=== PATIENT | male | born 1955 | race Caucasian/White ===

== ENCOUNTER 2016-05-01 14:26 | Emergency (ER) | payer BC ==
--- NOTE | 2016-05-01 15:58 | EDM.PDOC ---
ED HPI NEURO - General Chief Complaint: Neuro Symptoms/Deficits Stated Complaint: NUMBNESS IN FACE AND HANDS Time Seen by Provider: 05/01/16 14:37 Source of Information: Reports: Patient, Family (), RN notes reviewed History Limitations: Reports: No limitations - History of Present Illness INITIAL COMMENTS - FREE TEXT/NARRATIVE: The patient states that he developed a tingling sensation to his left foot evening/Tuesday morning, 04/29/2016, 04/30/2016. He developed a tingling sensation to the ulnar aspect of his left hand about the same time. Tuesday and today he developed a tingling sensation to his left face. The tingling to his hand and face have been coming and going, while the tingling to his left foot persists. No prior similar symptoms. - Related Data Allergies/ADRs: Allergies Allergy/AdvReac Type Severity Reaction Status Date / Time No Known Allergies Allergy Verified 05/01/16 14:37 Home Meds: Home Meds Aspirin 81 mg PO DAILY 05/01/16 [History] Finasteride 5 mg PO DAILY 05/01/16 [History] Lisinopril [Zestril] 40 mg PO DAILY 05/01/16 [History] Omeprazole 20 mg PO DAILY 05/01/16 [History] Ubidecarenone [Co Q-10] 200 mg PO DAILY 05/01/16 [History] amLODIPine [Norvasc] 5 mg PO DAILY 05/01/16 [History] atorvaSTATin [Lipitor] 20 mg PO DAILY 05/01/16 [History] Past Medical History Cardiovascular History: Reports: High cholesterol, Hypertension Gastrointestinal History: Reports: GERD Genitourinary History: Reports: BPH - Past Surgical History GI Surgical History: Reports: Hernia repair/other Musculoskeletal Surgical History: Reports: Arthroscopic procedure (left knee) Social & Family History - Family History Cardiac: Reports: Hypertension, [place] - Tobacco Use Smoking Status *Q: Never Smoker Second Hand Smoke Exposure: No - Caffeine Use Caffeine Use: Reports: Coffee - Alcohol Use Alcohol Use History: Yes Alcohol Use Frequency: Rarely - Recreational Drug Use Recreational Drug Use: No - Living Situation & Occupation Living situation: Reports: , with spouse 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 [employer]) ED ROS GENERAL - Review of Systems Review Of Systems: See Below Constitutional: Reports: no symptoms HEENT: Reports: No symptoms Respiratory: Reports: No Symptoms Cardiovascular: Reports: No symptoms Endocrine: Reports: no symptoms GI/Abdominal: Reports: No symptoms : Reports: no symptoms Musculoskeletal: Reports: no symptoms Skin: Reports: no symptoms Neurological: Reports: No Symptoms Psychiatric: Reports: No symptoms Hematologic/Lymphatic: Reports: no symptoms Immunologic: Reports: no symptoms ED EXAM, NEURO - Physical Exam Exam: See Below Exam Limited By: No limitations General Appearance: alert, WD/WN, no apparent distress Eye Exam: bilateral eye: EOMI, normal inspection Ears: normal external exam, hearing grossly normal Nose: normal inspection, no blood Throat/Mouth: Normal inspection, Normal lips, Normal voice, No airway compromise Head Exam: atraumatic, normocephalic Neck: normal inspection, full range of motion Respiratory/Chest: no respiratory distress, lungs clear, normal breath sounds, no accessory muscle use Cardiovascular: normal peripheral pulses, regular rate, rhythm, no edema, no gallop, no JVD, no murmur, no rub GI/Abdominal: normal bowel sounds, soft, non tender, no organomegaly, no distention, no abnormal bruit, no mass Neurological: alert, normal dorsiflexion, CN II-XII intact, normal plantar flexion, normal reflexes, no motor/sensory deficits, oriented x 3, other (The patient reports a tingling sensation to the left side of his face, and ulnar aspect of his left hand, and to his left foot.) Back Exam: normal inspection, full range of motion, NT Extremities: normal inspection, normal range of motion, no pedal edema, normal capillary refill Psychiatric: normal affect Skin Exam: Warm, Dry, Intact, Normal color, No rash EKG INTERPRETATION EKG Date: 05/01/16 Time: 14:43 Rhythm: NSR Rate (beats/min): 95 [place]: normal P-wave: present QRS: normal ST-T: normal QT: normal Course - Vital Signs Last Recorded V/S: Last Vital Signs Temp 36.6 C 05/01/16 14:31 Pulse 84 05/01/16 17:00 Resp 18 05/01/16 17:00 BP 141/94 H 05/01/16 17:00 Pulse Ox 97 05/01/16 17:00 - Orders/Labs/Meds Orders: Active Orders 24 hr Category Date Time Status EKG Documentation Completion [RC] STAT Care 05/01/16 14:39 Active Head wo Cont [CT] Stat Exams 05/01/16 14:38 Taken Labs: Laboratory Tests 05/01/16 05/01/16 05/01/16 Range/Units 14:39 14:58 14:58 WBC 8.72 (4.23-9.07) K/mm3 RBC 4.70 (4.63-6.08) M/mm3 Hgb 14.4 (13.7-17.5) gm/L Hct 41.9 (40.1-51.0) % MCV 89.1 (79.0-92.2) fl MCH 30.6 (25.7-32.2) pg MCHC 34.4 (32.2-35.5) g/dl RDW Std Deviation 40.9 (35.1-43.9) fL Plt Count 243 (163-337) K/mm3 MPV 9.7 (9.4-12.3) fl Neutrophils % (Manual) 70 H (40-60) % Band Neutrophils % 0 (0-10) % Lymphocytes % (Manual) 27 (20-40) % Atypical Lymphs % 0 % Monocytes % (Manual) 3 (2-10) % Eosinophils % (Manual) 0 L (0.8-7.0) % Basophils % (Manual) 0 L (0.2-1.2) Toxic Granulation Few Platelet Estimate Adequate RBC Morph Comment Normal PT (8.0-13.0) SECONDS INR APTT (22-36) SECONDS Puncture Site Rt radial ABG pH 7.42 (7.35-7.45) ABG pCO2 37.3 (35.0-45.0) mmHg ABG pO2 74.0 L (80.0-100.0) mmHg ABG HCO3 23.8 (22.0-26.0) meq/L ABG O2 Saturation 93.8 L (96.0-97.0) % ABG Base Excess 0.2 (-2-2.0) Patel Test Positive A-a Gradient 21 mmHg O2 Delivery Device Room air FiO2 21.00 (21.00-100.00) % Sodium 141 (136-145) mEq/L Potassium 3.7 (3.5-5.1) mEq/L Chloride 105 (98-107) mEq/L Carbon Dioxide 25 (21-32) mEq/L Anion Gap 14.7 (5-15) BUN 21 H (7-18) mg/dL Creatinine 1.1 (0.7-1.3) mg/dL Est Cr Clr Drug Dosing 70.52 mL/min Estimated GFR (MDRD) > 60 (>60) mL/min BUN/Creatinine Ratio 19.1 H (14-18) Glucose 119 H (80-115) mg/dL Calcium 8.9 (8.5-10.1) mg/dL Total Bilirubin 0.4 (0.2-1.0) mg/dL AST 28 (15-37) U/L ALT 38 (16-63) U/L Alkaline Phosphatase 70 (46-116) U/L Total Protein 7.7 (6.4-8.2) g/dl Albumin 4.1 (3.4-5.0) g/dl Globulin 3.6 gm/dL Albumin/Globulin Ratio 1.1 (1-2) Vitamin B12 (193-986) pg/ml Folate (8.6-58.9) ng/mL 05/01/16 05/01/16 Range/Units 14:58 14:58 WBC (4.23-9.07) K/mm3 RBC (4.63-6.08) M/mm3 Hgb (13.7-17.5) gm/L Hct (40.1-51.0) % MCV (79.0-92.2) fl MCH (25.7-32.2) pg MCHC (32.2-35.5) g/dl RDW Std Deviation (35.1-43.9) fL Plt Count (163-337) K/mm3 MPV (9.4-12.3) fl Neutrophils % (Manual) (40-60) % Band Neutrophils % (0-10) % Lymphocytes % (Manual) (20-40) % Atypical Lymphs % % Monocytes % (Manual) (2-10) % Eosinophils % (Manual) (0.8-7.0) % Basophils % (Manual) (0.2-1.2) Toxic Granulation Platelet Estimate RBC Morph Comment PT 10.7 (8.0-13.0) SECONDS INR 0.98 APTT 25 (22-36) SECONDS Puncture Site ABG pH (7.35-7.45) ABG pCO2 (35.0-45.0) mmHg ABG pO2 (80.0-100.0) mmHg ABG HCO3 (22.0-26.0) meq/L ABG O2 Saturation (96.0-97.0) % ABG Base Excess (-2-2.0) Patel Test A-a Gradient mmHg O2 Delivery Device FiO2 (21.00-100.00) % Sodium (136-145) mEq/L Potassium (3.5-5.1) mEq/L Chloride (98-107) mEq/L Carbon Dioxide (21-32) mEq/L Anion Gap (5-15) BUN (7-18) mg/dL Creatinine (0.7-1.3) mg/dL Est Cr Clr Drug Dosing mL/min Estimated GFR (MDRD) (>60) mL/min BUN/Creatinine Ratio (14-18) Glucose (80-115) mg/dL Calcium (8.5-10.1) mg/dL Total Bilirubin (0.2-1.0) mg/dL AST (15-37) U/L ALT (16-63) U/L Alkaline Phosphatase (46-116) U/L Total Protein (6.4-8.2) g/dl Albumin (3.4-5.0) g/dl Globulin gm/dL Albumin/Globulin Ratio (1-2) Vitamin B12 748 (193-986) pg/ml Folate 30.5 (8.6-58.9) ng/mL - Radiology Interpretation Free Text/Narrative:: CT of the head is read by [facility] as "No evidence for acute intracranial abnormality." - Re-Assessments/Exams Free Text/Narrative Re-Assessment/Exam: 05/01/16 16:39 Test results discussed with the patient and his . Today's workup is entirely normal, and does not explain the cause of the patient's symptoms. The CT scan of his head is negative for stroke, which one would expect to be positive, given the distribution. Further, a thrombolytic would not be indicated, given the duration of his symptoms, now approaching 48 hours. His ABG does not indicate hyperventilation syndrome, and he does not have a low folic acid level or B12 level that could potentially cause neuropathy. MS is on the differential. I am therefore recommending a MRI of the head. 05/01/16 16:[address] Valentin at 16:49. He agrees with discharging the patient home and having him followup in the office, where he can arrange for outpatient evaluation. Departure - Departure Time of Disposition: 16:52 Disposition: Home, Self-Care 01 Condition: good Clinical Impression: Paresthesia Instructions: Paresthesia, [id number] Referrals: Adonis Valentin MD [Primary Care Provider] - Forms: ED Department Discharge Additional Instructions: You were seen in the emergency room today for tingling of your left foot, part of your left hand, and the left side of your face. Workup in the ER included blood work, a blood gas, an ECG, and a CT scan of your head. Your entire workup was normal, and does not explain the cause of your symptoms, however, it does not appear that you have suffered a stroke. Your case was discussed with your PCP, Dr. Valentin. You are to followup with him early this coming week for further evaluation. If any other problems, please do not hesitate to return to the ER. - My Orders Last 24 Hours: My Active Orders 05/01/16 14:38 Head wo Cont [CT] Stat 05/01/16 14:39 EKG Documentation Completion [RC] STAT - Assessment/Plan Last 24 Hours: My Active Orders 05/01/16 14:38 Head wo Cont [CT] Stat 05/01/16 14:39 EKG Documentation Completion [RC] STAT
[2016-05-01 17:07] VITALS: BP 141/94
--- NOTE | 2016-05-03 06:53 | CT ---
Head CT Technique: Multiple axial sections through the brain were obtained. Intravenous contrast was not utilized. Findings: Ventricles along with basal cisterns and sulci over the convexities are within normal limits for the patient's age. No abnormal parenchymal densities are seen. No evidence of intracranial hemorrhage. No midline shift or mass effect is seen. Bone window settings were reviewed show the visualized sinuses to appear clear. No acute calvarial abnormality is seen. Impression: 1. No acute abnormality identified on noncontrast head CT study. Diagnostic code #1 I agree with preliminary report issued by [facility] (preliminary report dictated on 05/01/16, 3:45 PM Central Time)
== END 2016-05-01 17:00 | disposition home or self-care (01) ==
LOC: JD.ED 14:26
DX: R20.2 Paresthesia of skin (principal); E78.00 Pure hypercholesterolemia, unspecified; I10 Essential (primary) hypertension; K21.9 Gastro-esophageal reflux disease without esophagitis; N40.0 Benign prostatic hyperplasia without lower urinary tract symptoms; Z79.82 Long term (current) use of aspirin; Z79.899 Other long term (current) drug therapy
CPT/HCPCS: 36415; 36600; 70450; 70450-26; 80053; 82607; 82746; 82803; 85025; 85610; 85730; 93005; 99284; 99285-25

== ENCOUNTER 2020-11-27 07:44 | Emergency (ER) | payer MEDICARE, BC ==
[2020-11-27 08:00] VITALS: BP 144/97; PULSE 97
[2020-11-27] MEDS ORDERED: Lidocaine 1% 10 ML MDV INJECT ONE (08:02)
[2020-11-27] MEDS ORDERED: Diphtheria,Pertussis(Acell),Tetanus Vaccine 0.5 ML Syringe IM ONE (08:03)
--- NOTE | 2020-11-27 08:08 | EDM.PDOC ---
ED HPI GENERAL MEDICAL PROBLEM - General Chief Complaint: Laceration Stated Complaint: HEAD LAC Time Seen by Provider: 11/27/20 07:58 Source of Information: Reports: Patient History Limitations: Reports: No Limitations - History of Present Illness INITIAL COMMENTS - FREE TEXT/NARRATIVE: 65-year-old male presents to the ED for evaluation of a laceration in the anterior vertex of his scalp. Patient is bald in this area. He has suffered a 3 cm laceration which is linear in the anterior midline of the frontal scalp. No other injuries occurred. He indicates that he was unloading materials that he had repaired cleaned out of a shed at the junkyard when he fell backwards and the debris struck him in the frontal scalp causing a laceration. He is unsure when his last tetanus diphtheria pertussis vaccine was updated. Onset: Today, Sudden Onset Date: 11/27/20 Onset Time: 07:15 Duration: Minutes: Location: Reports: Head (Laceration midline frontal cortex scalp) Quality: Reports: Ache Severity: Mild Improves with: Reports: None Worsens with: Reports: None Context: Reports: Trauma (Slipped and fell with his hands full of debris falling backwards in the debris struck him in the head causing the laceration). Denies: Activity, Exercise, Lifting, Sick Contact Associated Symptoms: Reports: No Other Symptoms. 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) - Related Data Allergies Allergy/AdvReac Type Severity Reaction Status Date / Time No Known Allergies Allergy Verified 11/27/20 08:01 Home Meds: Home Meds Aspirin 81 mg PO DAILY 05/01/16 [History] Finasteride 5 mg PO DAILY 05/01/16 [History] Omeprazole 20 mg PO DAILY 05/01/16 [History] Ubidecarenone [Co Q-10] 200 mg PO DAILY 05/01/16 [History] amLODIPine [Norvasc] 10 mg PO DAILY 05/01/16 [History] atorvaSTATin [Lipitor] 20 mg PO DAILY 05/01/16 [History] lisinopriL [Zestril] 40 mg PO DAILY 05/01/16 [History] Past Medical History Cardiovascular History: Reports: High Cholesterol, Hypertension Other Cardiovascular History: hyperlipidemia Gastrointestinal History: Reports: GERD Genitourinary History: Reports: BPH - Past Surgical History GI Surgical History: Reports: Hernia Repair/Other Musculoskeletal Surgical History: Reports: Arthroscopic Procedure Social & Family History - Family History Cardiac: Reports: Hypertension, [place] - Caffeine Use Caffeine Use: Reports: Coffee - Living Situation & Occupation Living situation: Reports: , with Spouse Occupation: Employed ED ROS GENERAL - Review of Systems Review Of Systems: See Below Constitutional: Denies: Fever, Chills, Malaise, Weakness, Fatigue, Weight Loss HEENT: Reports: Glasses Respiratory: Reports: No Symptoms Cardiovascular: Reports: Blood Pressure Problem Endocrine: Reports: No Symptoms GI/Abdominal: Reports: No Symptoms : Reports: Other (.) Musculoskeletal: Reports: Joint Pain Skin: Reports: No Symptoms (Knees hips low back neck at times from arthritis) Neurological: Reports: No Symptoms Psychiatric: Reports: No Symptoms Hematologic/Lymphatic: Reports: No Symptoms Immunologic: Reports: No Symptoms ED EXAM, SKIN/RASH Exam: See Below Exam Limited By: No Limitations General Appearance: Alert, WD/WN, No Apparent Distress, Other (Temperature is 36.2 degrees. Heart rate 97 and sinus respiratory 16 with O2 sats of 96% room air. BP 1 4497) Eye Exam: Bilateral Eye: Normal Inspection Throat/Mouth: Normal Inspection, Normal Lips, Normal Teeth, Normal Oropharynx, Other (No injuries to his tongue or dentition) Head: Other (Laceration vertex frontal scalp appreciated) Neck: Normal Inspection ( linear and in the midline), Supple, Non-Tender, Full Range of Motion. No: Lymphadenopathy (L), Lymphadenopathy (R) Respiratory/Chest: No Respiratory Distress, Lungs Clear, Normal Breath Sounds, No Accessory Muscle Use Cardiovascular: Normal Peripheral Pulses, Regular Rate, Rhythm, No Edema, No Gallop, No Murmur, No Rub Peripheral Pulses: 2+: Carotid (L), Carotid (R), Posterior Tibial (L), Posterior Tibial (R), Dorsalis Pedis (L), Dorsalis Pedis (R) Back Exam: Normal Inspection, Full Range of Motion. No: CVA Tenderness (L), CVA Tenderness (R) Extremities: Normal Inspection, Normal Range of Motion, Non-Tender, Slow Capillary Refill Neurological: Alert, Oriented, CN II-XII Intact, Normal Cognition Psychiatric: Normal Affect, Normal Mood Skin: Warm, Dry, Normal Color, Wound/Incision (Duration Vertex frontal scalp) Location, Skin: Head ED SKIN PROCEDURES - Laceration/Wound Repair Middle Mid-Anterior Head Appearance: Subcutaneous, Clean Distal NVT: Neuro & Vascular Intact Anesthetic Type: Local Local Anesthesia - Lidocaine (Xylocaine): 1% Plain Local Anesthetic Volume: 2cc Skin Prep: Chlorhexidine (Hibiciens) Exploration/Debridement/Repair: Wound Explored Closed with: Sutures Lac/Wound length In cm: 3.0 Suture Size: 4-0 # of Sutures: 5 Suture Type: Prolene, Interrupted, Simple Course - Vital Signs Last Recorded V/S: Last Vital Signs Temp 36.2 C 11/27/20 07:57 Pulse 97 11/27/20 07:57 Resp 16 11/27/20 07:57 BP 144/97 H 11/27/20 07:57 Pulse Ox 96 11/27/20 07:57 - Orders/Labs/Meds Orders: Active Orders 24 hr Category Date Time Status Vaccine to be Administered/Admin Charge [RC] ASDIRECTED Care 11/27/20 08:03 Active Meds: Medications Discontinued Medications Generic Name Dose Route Start Last Admin Trade Name Freq PRN Reason Stop Dose Admin Diphtheria/Tetanus/Acell Pertussis 0.5 ml 11/27/20 08:03 11/27/20 08:11 Diphtheria,Pertussis(Acell),Tetanus Vaccine 0.5 Ml Syringe IM 11/27/20 08:04 0.5 ml .ONCE ONE Administration Lidocaine HCl 10 ml 11/27/20 08:02 11/27/20 08:11 Lidocaine 1% 10 Ml Mdv INJECT 11/27/20 08:03 10 ml ONETIME ONE Administration - Radiology Interpretation Free Text/Narrative:: Evaluation the emergency room today in regards to injury sustained from a fall with her hands full of debris. The debris struck you in the frontal aspect of your scalp resulting in a 3 cm linear laceration that will require suture repair. Patient will have his tetanus diphtheria and pertussis vaccine updated as well. - Re-Assessments/Exams Free Text/Narrative Re-Assessment/Exam: 11/27/20 08:40 3 cm linear laceration mid vertex of the scalp sutured under local anesthetic. 5 Prolene 4-0 sutures were placed. Sutures will need to be removed in 10 days time. Departure - Departure Time of Disposition: 08:38 Disposition: Home, Self-Care 01 Condition: Fair Clinical Impression: Laceration of scalp Qualifiers: Encounter type: initial encounter Qualified Code(s): S01.01XA - Laceration without foreign body of scalp, initial encounter - Discharge Information *PRESCRIPTION DRUG MONITORING PROGRAM REVIEWED*: Not Applicable *COPY OF PRESCRIPTION DRUG MONITORING REPORT IN PATIENT [place]: Not Applicable Instructions: Laceration Care, Adult Referrals: Adonis Valentin MD [Primary Care Provider] - Forms: ED Department Discharge Additional Instructions: Evaluation in the emergency room this morning in regards to a laceration to the left frontal vertex of your scalp. This was struck by debris as you fell backwards while at the junkyard this morning. You suffered a 3 cm laceration in the midline of the vertex of the scalp that was cleansed and then sutured under local anesthetic x 5 sutures. Your tetanus diphtheria pertussis vaccine was also updated today and is good for the next 10 years. Sutures will need to be removed from the scalp in 10 days time. Treatment at home is to daily cleanse the wound with soap and water. Showering is okay. Then apply topical antibiotic such as bacitracin or Polysporin to the wound once daily and cover to keep clean. Please follow-up with your personal care physician to have this procedure done. Return to medical care if any signs of infection develop such as increased swelling, redness or obvious pus. Sepsis Event Note (ED) - Evaluation Sepsis Screening Result: No Definite Risk - Focused Exam Vital Signs: Vital Signs Temp Pulse Resp BP Pulse Ox 11/27/20 07:57 36.2 C 97 16 144/97 H 96 - My Orders Last 24 Hours: My Active Orders 11/27/20 08:03 Vaccine to be Administered/Admin Charge [RC] ASDIRECTED - Assessment/Plan Last 24 Hours: My Active Orders 11/27/20 08:03 Vaccine to be Administered/Admin Charge [RC] ASDIRECTED
== END 2020-11-27 08:45 | disposition home or self-care (01) ==
LOC: JD.ED 07:44
DX: S01.01XA Laceration without foreign body of scalp, initial encounter (principal); E78.00 Pure hypercholesterolemia, unspecified; I10 Essential (primary) hypertension; K21.9 Gastro-esophageal reflux disease without esophagitis; Z79.82 Long term (current) use of aspirin; Z79.899 Other long term (current) drug therapy; Z23 Encounter for immunization; W26.8XXA Contact with other sharp object(s), not elsewhere classified, initial encounter
CPT/HCPCS: 12002; 90471; 90715; 99282-25